=== PATIENT | female | born 1985 | race Hispanic/Latino ===

== ENCOUNTER 2018-07-06 16:19 | Emergency (ER) | payer BC, OTHER ==
--- NOTE | 2018-07-06 16:38 | Emergency Department Report ---
Blank Doc - Documentation Documentation: This is a 33-year-old female that presents with nausea with dizziness x1 year. Stated started to have headaches last month. Stated has been seen by PCP. This initial assessment/diagnostic orders/clinical plan/treatment(s) is/are subject to change based on patient's health status, clinical progression and re- assessment by fellow clinical providers in the ED. Further treatment and workup at subsequent clinical providers discretion. Patient/guardians urged not to elope from the ED as their condition may be serious if not clinically assessed and managed. Initial orders include: 1- Patient sent to [facility] for further evaluation and treatment 2- labs 3- UA 4- orthostatic vitals
[2018-07-06 17:29] LABS: Bacteria,Urine 1+ /HPF (Negative); Bilirubin,Urine NEG (Negative); Blood,Urine NEG (Negative); Color,Urine Straw (Yellow); HCG Qualitative,Urine Negative (Negative); Protein,Urine <15 mg/dL mg/dL (Negative); Urobilinogen,Urine < 2.0 mg/dL (<2.0); WBC,Urine < 1.0 /HPF (0.0-6.0)
[2018-07-06 17:35] LABS: Basophils # (Auto) 0.1 K/mm3 (0.0-0.1); Basophils % (Auto) 0.6 % (0.0-1.8); Eosinophils # (Auto) 0.1 K/mm3 (0.0-0.4); Eosinophils % (Auto) 0.5 % (0.0-4.3); Hematocrit 44.1 % (30.3-42.9); Hemoglobin 15.1 gm/dl (10.1-14.3); Lymphocytes # (Auto) 3.1 K/mm3 (1.2-5.4); Mean Corpuscular HGB Conc 34 % (30-34); Mean Corpuscular Hemoglobin 31 pg (28-32); Mean Corpuscular Volume 92 fl (79-97); Monocytes # (Auto) 0.6 K/mm3 (0.0-0.8); Monocytes % (Auto) 5.1 % (0.0-7.3); Platelet Count 420 K/mm3 (140-440); Red Blood Count 4.81 M/mm3 (3.65-5.03); Red Cell Distribution Width 13.1 % (13.2-15.2)
[2018-07-06 17:50] LABS: Alanine Aminotransferase 12 units/L (7-56); BUN/Creatinine Ratio 11; Bilirubin,Direct < 0.2 mg/dL (0-0.2); Blood Urea Nitrogen 9 mg/dL (7-17); Calcium 9.8 mg/dL (8.4-10.2); Hemolysis Index 8; Lipase 28 units/L (13-60)
[2018-07-06] MEDS ORDERED: ANTIVERT PO ONE (18:05)
--- NOTE | 2018-07-06 18:18 | Emergency Department Report ---
ED Dizziness HPI - General Chief Complaint: Nausea/Vomiting/Diarrhea Stated Complaint: HBP/NAUSEA Time Seen by Provider: 07/06/18 16:37 Source: patient Mode of arrival: Ambulatory Limitations: No Limitations - History of Present Illness Initial Comments: Pt is a 33 yo female who presents to the ED with c/o chronic dizziness and lightheadedness x 1 year. The patient states it is worse with certain head movements and when bending over. She has associated posterior BANKS and nausea for a couple of weeks. She states she was at her [employer] office today and her pressure was 144/100 and she was advised to be evaluated in the ED. She states she also has intermittent blurry vision and went to see the pole peeling machine operator helper and received reading glasses but states she is still having issues. She does not have blurry vision currently. She states she has tingling sensation in her bilateral hands. She denies any numbness, unilateral weakness, or speech difficulty. She states a year ago she went to a career representative and had a holter monitor due to "bradycardia." She states she was previously on BP medication but was advised to stop taking it by the career representative due to having normal BP. She states she saw her PCP but just had labs completed which were normal. She has not seen ENT or neurology. She has not taken meclizine. the patient states she has anxiety because she is concerned about "an issue in her brain." Her mother and grandmother both have vertigo controlled with meclizine. - Related Data Previous Rx's Medication Instructions Recorded Last Taken Type Ibuprofen [Motrin 800 MG tab] 800 mg PO Q8HR PRN #30 tablet 04/01/15 Unknown Rx Amoxicillin/K Clav Tab [Augmentin 1 tab PO BID 7 Days #14 tab 07/06/18 Unknown Rx 875 mg] Fluticasone [Flonase] 1 spray NS QDAY #1 bottle 07/06/18 Unknown Rx Meclizine [Antivert] 12.5 mg PO BID PRN #20 tablet 07/06/18 Unknown Rx Ondansetron [Zofran Odt] 4 mg PO Q8HR PRN #10 tab.rapdis 07/06/18 Unknown Rx Allergies Allergy/AdvReac Type Severity Reaction Status Date / Time No Known Allergies Allergy Unverified 03/31/15 22:49 ED Review of Systems ROS: Stated complaint: HBP/NAUSEA Other details as noted in HPI Comment: All other systems reviewed and negative ED Past Medical Hx - Past Medical History Hx Hypertension: Yes - Surgical History Past Surgical History?: Yes Additional Surgical History: X1 - Social History Smoking Status: Former Smoker Substance Use Type: Alcohol - Medications Home Medications: Home Medications Medication Instructions Recorded Confirmed Last Taken Type Ibuprofen [Motrin 800 MG tab] 800 mg PO Q8HR PRN #30 tablet 04/01/15 Unknown Rx Amoxicillin/K Clav Tab [Augmentin 1 tab PO BID 7 Days #14 tab 07/06/18 Unknown Rx 875 mg] Fluticasone [Flonase] 1 spray NS QDAY #1 bottle 07/06/18 Unknown Rx Meclizine [Antivert] 12.5 mg PO BID PRN #20 tablet 07/06/18 Unknown Rx Ondansetron [Zofran Odt] 4 mg PO Q8HR PRN #10 tab.rapdis 07/06/18 Unknown Rx ED Physical Exam - General Limitations: No Limitations General appearance: alert, in no apparent distress - Head Head exam: Present: atraumatic, normocephalic - Eye Eye exam: Present: normal appearance, PERRL, EOMI - ENT ENT exam: Present: mucous membranes moist - Respiratory Respiratory exam: Present: normal lung sounds bilaterally. Absent: respiratory distress, wheezes, rales, rhonchi, stridor, chest wall tenderness, accessory muscle use, decreased breath sounds, prolonged expiratory - Cardiovascular Cardiovascular Exam: Present: regular rate, normal rhythm, normal heart sounds. Absent: systolic murmur, rubs, gallop - Neurological Exam Neurological exam: Present: alert, oriented X3, CN II-XII intact, normal gait, other (normal heel to valles, normal finger to nose, normal rapid alternating movements, strength is 5/5 in the BLE/BUE, sensation intact, no focal neuro deficit). Absent: motor sensory deficit - Psychiatric Psychiatric exam: Present: normal affect, anxious (mildly ) - Skin Skin exam: Present: warm, dry, intact ED Course Vital Signs 07/06/18 07/06/18 07/06/18 16:28 18:21 21:09 Temperature 97.6 F 97.6 F Pulse Rate 76 84 Pulse Rate [ 58 L Sitting] Pulse Rate [ 74 Standing] Respiratory 20 18 Rate Blood Pressure 151/79 136/64 [Left] Blood Pressure 156/76 [Right] Blood Pressure 149/81 [Sitting] Blood Pressure 156/91 [Standing] O2 Sat by Pulse 100 Oximetry ED Medical Decision Making - Lab Data Result diagrams: 07/06/18 17:15 07/06/18 17:15 - EKG Data -: EKG Interpreted by Me EKG shows normal: sinus rhythm, axis, intervals, QRS complexes, ST-T waves Rate: bradycardia (sinus aiden, rate of 55) - Radiology Data Radiology results: report reviewed PROCEDURE: CT HEAD/BRAIN WO CON TECHNIQUE: Computerized tomography of the head was performed without contrast material. CT DOSE LENGTH PRODUCT: 805.4 mGycm HISTORY: BANKS, dizziness COMPARISONS: None . FINDINGS: No CT evidence of intracranial mass, hemorrhage, hydrocephalus, or acute territorial infarction. Intracranial arteries are symmetric in density. Calvarium is intact. There is minimal right ethmoid sinus mucosal thickening. Mastoids are aerated. IMPRESSION: No CT evidence of acute abnormality . This document is electronically signed by Karine Uribe MD., July 06 2018 08:3 7:56 PM ET - Medical Decision Making Pt is a 33 yo female who presents to the ED with c/o chronic dizziness and lightheadedness x 1 year. The patient states it is worse with certain head movements and when bending over. She has associated posterior BANKS and nausea for a couple of weeks. She states she was at her [employer] office today and her pressure was 144/100 and she was advised to be evaluated in the ED. She states she also has intermittent blurry vision and went to see the pole peeling machine operator helper and received reading glasses but states she is still having issues. She does not have blurry vision currently. She states she has tingling sensation in her bilateral hands. She denies any numbness, unilateral weakness, or speech difficulty. She states a year ago she went to a career representative and had a holter monitor due to "bradycardia." She states she was previously on BP medication but was advised to stop taking it by the career representative due to having normal BP. She states she saw her PCP but just had labs completed which were normal. She has not seen ENT or neurology. She has not taken meclizine. the patient states she has anxiety because she is concerned about "an issue in her brain." Her mother and grandmother both have vertigo controlled with meclizine. EKG is normal with sinus aiden, orthostatic vitals are normal, labs WNL, CT head shows mild sinus disease otherwise normal. pt states sx resolved after dose of meclizine. pt symptoms most likely attributed to vertigo, sinus infection, and anxiety. will tx for sinusitis and vertigo. advised pt to discuss with her PCP regarding anxiety, she was given a prescription for lexapro but states she has not been taking it. neuro exam is completely normal. will have pt follow up with an ENT doctor in the next 2-3 days. also follow up with pcp in the next 2-3 days to discuss blood pressure and taking lexapro for anxiety. return to the emergency room for any new or worsening symptoms. - Differential Diagnosis anxiety, sinusitis, vertigo, mass Critical care attestation.: If time is entered above; I have spent that time in minutes in the direct care of this critically ill patient, excluding procedure time. ED Disposition Clinical Impression: Vertigo, Anxiety Sinusitis Qualifiers: Sinusitis location: ethmoidal Chronicity: acute Recurrence: non-recurrent Qualified Code(s): J01.20 - Acute ethmoidal sinusitis, unspecified Disposition: DC- TO HOME OR SELFCARE Is pt being admited?: No Does the pt Need Aspirin: No Condition: Stable Instructions: Sinusitis (ED), Vertigo (ED) Additional Instructions: Follow up with your primary care doctor in the next 2-3 days to discuss your blood pressure. Follow up with an ENT Doctor as listed in the next 2-3 days. Take medication as prescribed. Continue drinking plenty of fluids. Return to the emergency room for any new or worsening symptoms. Prescriptions: Meclizine [Antivert] 12.5 mg PO BID PRN #20 tablet PRN Reason: Vertigo Amoxicillin/K Clav Tab [Augmentin 875 mg] 1 tab PO BID 7 Days #14 tab Fluticasone [Flonase] 1 spray NS QDAY #1 bottle Ondansetron [Zofran Odt] 4 mg PO Q8HR PRN #10 tab.rapdis PRN Reason: Nausea And Vomiting Referrals: [facility] [Other] - 2-3 Days VIKTOR GARCIA MD [Staff Physician] - 2-3 Days Time of Disposition: 21:02 Print Language: ROMANIAN
--- NOTE | 2018-07-06 20:40 | Cat Scan Report ---
PROCEDURE: CT HEAD/BRAIN WO CON TECHNIQUE: Computerized tomography of the head was performed without contrast material. CT DOSE LENGTH PRODUCT: 805.4 mGycm HISTORY: BANKS, dizziness COMPARISONS: None . FINDINGS: No CT evidence of intracranial mass, hemorrhage, hydrocephalus, or acute territorial infarction. Intr acranial arteries are symmetric in density. Calvarium is intact. There is minimal right ethmoid sinus mucosal thickening. Mastoids are aerated. IMPRESSION: No CT evidence of acute abnormality . This document is electronically signed by Karine Uribe MD., July 06 2018 08:37:56 PM ET
[2018-07-06 21:10] VITALS: BP 136/64
== END 2018-07-06 21:09 | disposition home or self-care (01) ==
LOC: ED 16:19
DX: R42 Dizziness and giddiness (principal); F41.9 Anxiety disorder, unspecified; J32.9 Chronic sinusitis, unspecified; I10 Essential (primary) hypertension; H53.8 Other visual disturbances; Z87.891 Personal history of nicotine dependence
CPT/HCPCS: 36415; 70450; 80048; 80076; 81001; 81025; 83690; 85025; 93005; 93010; 99284